=== PATIENT | female | born 1950 | race Caucasian/White ===

== ENCOUNTER 2016-07-30 22:16 | Inpatient (IN) | payer MEDICARE, OTHER ==
--- NOTE | ~2016-07-30 | EKG ---
PATIENT: RANDY REYNOLDS UNIT #: [id number] Ventricular Rate: 107 BPM Atrial Rate: 107 BPM P-R Interval: 128 ms QRS Duration: 74 ms Q-T Interval: 302 ms QTC Calculation(Bezet): 403 ms P Eudora: 72 degrees Calculated R Eudora: -30 degrees Calculated T Eudora: 52 degrees Diagnosis Line: Sinus tachycardia Diagnosis Line: Possible Left atrial enlargement Diagnosis Line: Left axis deviation Diagnosis Line: Nonspecific ST abnormality Diagnosis Line: Abnormal ECG Diagnosis Line: No previous ECGs available Diagnosis Line: Confirmed by TALON VEGA MD ([id number]) on Diagnosis Line: 07/31/2016 8:03:22 AM INTERPRETING MD: NICOLE
--- NOTE | ~2016-07-30 | CO ---
Unit #: [id number] #: [id number] Patient: RANDY REYNOLDS [id number] [facility]. [place], [place] [address] [id number] I MR#: [id number] NAME: RANDY REYNOLDS. ROOM: 321 Age: 65 Sex: F Admission Date: 07/30/2016 : 1950 Attending Physician: Juan M Hernandez M.D. Primary Care Physician: Juan M Hernandez M.D. CONSULTATION REPORT We were asked to see her by Dr. Juan M Hernandez. REASON FOR CONSULTATION Respiratory failure. HISTORY OF PRESENT ILLNESS Ms. Reynolds is a very pleasant 65-year-old female with a history of pneumonia in the past. She is now here with increasing shortness of air. She apparently has been seen by Dr. Cadena, I believe in the [facility] area and it sounds like she has had pneumonia previously and it was followed, and at one point, I think they were close to do a bronchoscopy, but they never did one. She then had to go to [facility] and was admitted on approximately 07/20/2016 to 07/26/2016. She was found to have flu, I am not sure A versus B, also RSV and may be one other additional virus. I suspect she was treated with antibiotics at first, but then was only finding viruses, they probably stopped them. She was sent home, I believe on 3 L oxygen. She then began to feel worse in the last few days and basically just had worsened shortness of air, and therefore, came through the emergency room. She does have a cough, scantly productive of yellow sputum, maybe a bit worse. She really does not complain of any chest pain. She did previously smoke a pack and half a day, but she quit in 2006. She does have a history of COPD and she has used Symbicort and Spiriva as well as p.r.n. beta agonists. PAST MEDICAL HISTORY Otherwise significant for hypertension, gastroesophageal reflux, osteoarthritis, diverticulosis. PAST SURGICAL HISTORY Include cataract surgery, tubal ligation, and left shoulder repair. MEDICATIONS ON ADMISSION Had included Spiriva 1 capsule inhaled daily, Norvasc 10 mg p.o. daily, Cymbalta 60 mg p.o. daily, Mucinex-D one p.o. b.i.d., lisinopril 20 mg p.o. daily, metoprolol 25 mg p.o. daily, Prilosec 40 mg p.o. daily, Symbicort 160/4.5 two puffs b.i.d., prednisone pack that she was finishing. ALLERGIES Phencyclidine and sulfa. SOCIAL HISTORY She did smoke a pack and half a day, but she quit in 2006. FAMILY HISTORY Unit #: [id number] #: [id number] Patient: RANDY REYNOLDS Significant for lung disease in her father. SYSTEMS REVIEW No nausea. No vomiting. Occasional leg swelling. No skin complaints. Occasional fever and chills. All other systems are negative except as mentioned. PHYSICAL EXAMINATION GENERAL: She presents as an elderly female, in no acute distress. VITAL SIGNS: Temperature was 98.1, pulse 100, respirations 20, blood pressure 121/82. NECK: Without adenopathy. LUNGS: Evaluation of her lungs reveals that her breathing was not labored. She had inspiratory crackles at the bases and she had expiratory wheezes bilaterally. HEART: Regular. ABDOMEN: Soft, nontender, and bowel sounds were present. EXTREMITIES: Maybe trace edema. NEUROLOGIC: She was awake and alert and able to carry on a conversation. DIAGNOSTIC STUDIES IMAGING STUDIES: Her chest x-ray to my exam reveals increased interstitial markings at the bases bilaterally in a patchy fashion consistent with very patchy bilateral pneumonia, although I could not say that this was not some pulmonary fibrosis. LABORATORY RESULTS: Blood gas on 5 L revealed pH of 7.5, pCO2 35.9, pO2 57. She is presently on 6 L Oxymizer and she is 90%. Her serum chemistries are significant for BUN 20, creatinine 0.7, and glucose little bit high 168, bicarb was 27. White blood cell count was 23,000, H and H 15.2 and 46.9, platelet count 272,000. IMPRESSION 1. Acute on chronic hypoxemic respiratory failure. 2. Exacerbation of chronic obstructive pulmonary disease. 3. Pneumonia bilateral patchy lower lobe atypical in nature in my opinion, it could indeed be viral after a recent bout with the flu could even be RSV pneumonitis, could be bacterial, could even be inflammatory such as bronchiolitis obliterans with organizing pneumonia. 4. Hypertension. PLAN She was started on the hospital-acquired pneumonia protocol, which is Zosyn, vancomycin, and tobramycin. I am okay that she got one dose of each, but I would have some concern about the nephrotoxicity of this regimen. Therefore, I would like to stop the tobramycin. I would like to check a sputum for culture. She is on Solu-Medrol 80 IV q.i.d. which is fine. She is already on enoxaparin, which is fine. She is on mini nebs, which is fine, although I would like to clarify it. If we continue her Spiriva, then she probably on albuterol alone; if we do DuoNebs, then she probably should be on Spiriva even though we could get away with it. I would like to check a high-resolution CT and she may well need that bronchoscopy that was previously discussed with other doctors after all. Thank you very much for allowing me to participate in the care of this patient. Unit #: [id number] #: [id number] Patient: RANDY REYNOLDS Dictated by... Andrew Castillo/meg TD: 07/31/2016 22:56 JOB #: [id number] CONSULTATION REPORT X Colby Pettit MD CONSULTATION REPORT
--- NOTE | ~2016-07-30 | OR ---
Unit #: [id number] #: [id number] Patient: RANDY REYNOLDS [id number] [place], [place] [address] [id number] I MR#: [id number] NAME: RANDY REYNOLDS ROOM: [facility] Date of Procedure: 08/05/2016 Admission Date: 07/30/2016 Surgeon: Yareli Cano M.D. : 1950 Attending Physician: Juan M Hernandez M.D. Primary Care Physician: Juan M Hernandez M.D. OPERATIVE REPORT PROCEDURE PERFORMED Bronchoscopy with bronchoalveolar lavage. INDICATIONS FOR PROCEDURE Diffuse tree-in-bud infiltrates bilaterally in all lobes on CT scan of the chest as well as bronchiectasis. ANESTHESIA Per Anesthesiology, the premedications include 2% Xylocaine, 1% Xylocaine, and Xylocaine jelly. DESCRIPTION OF PROCEDURE After obtaining informed consent, bronchoscope was passed oropharyngeally through the bite block. Anesthesia gave propofol. The vocal cords were seen, they moved symmetrically. There was no evidence of any lesions, these were splashed with 2% Xylocaine. Bronchoscope was passed down into the trachea, which was slightly tortuous. There was some kind of thick, but very scant mucus plugging. Bronchoscope was passed in the right upper, right middle, and right lower lobe. There was no evidence of any endobronchial lesions. There was evidence of bronchitis and bronchiectasis with dilatation of the airway. There was hypertrophy of the bronchial rings. There was pitting. There was hypertrophy of the bronchial mucosa and there was extremely easy collapsibility. The bronchoscope was then passed into the right middle lobe. A 90 mL sterile non-bacteriostatic saline was introduced and approximately 15 mL of clear slightly foamy fluid was retrieved. Bronchoscope was then passed in the left upper, left lingular, and left lower lobe. There was no evidence of any endobronchial lesions. Again, significant bronchiectasis was seen, especially in the lower lobes. Bronchoscope was passed into the lower lobe posterior segment. Approximately 120 mL of sterile non-bacteriostatic saline was introduced and approximately 5 to 10 mL was returned. The patient tolerated the procedure well. There was no hypoxia. Bronchoscope was removed. There was no acute complications and there were no limitations. Samples of bronchoalveolar lavage right middle lobe and bronchoalveolar lavage left lower lobe. There was no evidence. There were no complications and no limitations. Thank you very much. Please page me at [phone] if you have any questions. Dictated by... Yareli Cano M.D. Unit #: [id number] #: [id number] Patient: RANDY REYNOLDS BM/modl TD: 08/05/2016 21:28 JOB #: [id number] OPERATIVE REPORT X Paresh Cano MD X PROCEDURE OPERATIVE NOTE
--- NOTE | ~2016-07-30 | CR63 ---
[facility] A Service of [facility] RADIOLOGY TEXT RESULTS PATIENT: RANDY REYNOLDS LOCATION: [facility] : [birth year] UNIT #: [id number] AGE: [address]: Juan M Hernandez MD SEX: F ORDER DR: [id number] [facility]. [place], [place] [address] [id number] I MR#: [id number] Acc #: [id number] NAME: RANDY REYNOLDS : 1950 SEX: F STUDY DATE/TIME: 08/04/2016 7:12 UNIT: [address] ROOM: [address] [place] [address] DESCRIPTION: CR Chest 2 View Attending Physician: Juan M Hernandez M.D. Ordering Physician: Gretchen Farris A.P.R.N. Primary Care Physician: Juan M Hernandez M.D. MEDICAL IMAGING REPORT This report is preliminary unless electronic signature is present EXAM PA and lateral chest. DATE OF STUDY 08/04 COMPARISON STUDIES 07/30 HISTORY Cough, chest tightness for the last few days. Followup of an atypical pneumonia. TECHNIQUE PA and lateral views of the chest are obtained and compared directly to the patient's previous study. FINDINGS Previous exam showed significant interstitial infiltrates in both lungs which were new. These have improved but not cleared completely. Heart size in the patient is normal. CONCLUSION Significant decrease in the reticulonodular interstitial infiltrates compared with the patient's prior study of 07/30. Dictated by... Shoaib Castro M.D. THIS IS AN ELECTRONICALLY VERIFIED REPORT Shoaib Castro M.D. at 08/04/2016 5:06 PM [facility] A Service [facility] RADIOLOGY TEXT RESULTS PATIENT: RANDY REYNOLDS LOCATION: [facility] : 49 UNIT #: [id number] AGE: [address]: Juan M Hernandez MD SEX: F ORDER DR: DAMIEN/ariana TD: 08/04/2016 10:37 JOB #: [id number] MEDICAL IMAGING REPORT COPY
--- NOTE | ~2016-07-30 | HP ---
Unit #: [id number] #: [id number] Patient: RANDY REYNOLDS [id number] [place], [place] [address] [id number] I MR#: [id number] NAME: RANDY REYNOLDS. ROOM: 321 Age: 65 Sex: F Admission Date: 07/30/2016 : 1950 Attending Physician: Juan M Hernandez M.D. Primary Care Physician: Juan M Heranndez M.D. HISTORY AND PHYSICAL HISTORY OF PRESENT ILLNESS This is a 65-year-old white female with history of COPD, hypertension, major depressive disorder, tremor, osteoarthritis, GE reflux disease, diverticulosis. She was recently admitted to another facility with RSV and influenza A. Since discharge, she has had increasing shortness of air, cough, dyspnea on exertion, subjective fever. She presented to our emergency room, hypoxic, with bilateral lower lobe infiltrates and is readmitted to this facility for further evaluation and treatment. PAST MEDICAL HISTORY 1. Hypertension. 2. COPD. 3. Major depressive disorder. 4. Osteoarthritis. 5. GE reflux disease. 6. Diverticulosis. 7. Tremor. 8. Prior tobacco use. PAST SURGICAL HISTORY 1. Bilateral cataract surgery. 2. Tubal ligation in 1984. 3. Left shoulder tendon repair. 4. Left hemicolectomy with prior anastomosis for severe diverticulitis. 5. History of ventral hernia repair per laparoscopy. HOME MEDICATIONS 1. Lisinopril 20 mg daily. 2. Metoprolol succinate 25 mg daily. 3. Prilosec 40 mg daily. 4. Symbicort 160/4.5 two puffs q.12 h. 5. Medrol Dosepak. 6. Spiriva one puff daily. 7. Norvasc 10 mg daily. 8. Cymbalta 60 mg daily. 9. Mucinex DORINDA one tab b.i.d. ALLERGIES 1. Sulfa drugs. 2. Chantix. SOCIAL HISTORY Recently . Nondrinker. Used tobacco in the past. No street drug Unit #: [id number] #: [id number] Patient: RANDY REYNOLDS use. FAMILY HISTORY Noncontributory. PHYSICAL EXAMINATION VITAL SIGNS: She was afebrile in the ER. Pulse was originally 120 then fell to 88. Respirations were 25 and fell to 18. Blood pressure was 162/87 and fell to 131/74. O2 saturation on 6 liters in the ER was 77%, currently 95% on 5 liters. HEENT: Unremarkable except for nasal cannula in place. NECK: Supple without JVD, bruits, adenopathy, or thyromegaly. LUNGS: Diffusely decreased breath sounds with bibasilar crackles. HEART: Regular rate and rhythm without murmurs, rubs, or gallops. ABDOMEN: Large, soft, nondistended, nontender with positive bowel sounds and no hepatosplenomegaly. EXTREMITIES: No clubbing, cyanosis, or edema. GENITOURINARY: Deferred. RECTAL: Deferred. NEUROLOGIC: Grossly intact. DIAGNOSTIC STUDIES LABORATORY: On 5 liters, pH 7.5, pCO2 is 36, paO2 is 57. Lactic acid 1.3. BNP 80. CMP was normal except for random blood sugar of 168, ALT 59, albumin 3.1. White count 23.2 with a left shift. Cardiac enzymes normal. IMAGING: Chest x-ray new bilateral lower lobe alveolar infiltrates. CARDIOVASCULAR: EKG sinus tachycardia at 107 beats per minute. Left axis deviation. Left atrial enlargement. IMPRESSION 1. Ibkdn-yb-giypdya respiratory failure. 2. Hypoxemia. 3. Chronic obstructive pulmonary disease. 4. Hypertension. 5. Osteoarthritis. 6. Gastroesophageal reflux disease. 7. Bibasilar alveolar infiltrates. 8. Tremor. 9. Status post left hemicolectomy for diverticulitis. 10. Status post ventral abdominal wall hernia repair. 11. Status post bilateral cataract surgery. 12. Mild elevation in liver function tests. PLAN 1. IV antibiotics with healthcare-acquired pneumonia antibiotic protocol. 2. IV steroids. 3. Respiratory treatments. 4. Supplemental oxygen. 5. Pulmonary consult. 6. Check procalcitonin. 7. Lovenox for DVT prophylaxis. 8. Further evaluation pending results of the above. Unit #: [id number] #: [id number] Patient: RANDY REYNOLDS Dictated by Andrew Arguello/alex TD: 07/31/2016 18:05 JOB #: [id number] HISTORY AND PHYSICAL X Juan M Hernandez MD HISTORY AND PHYSICAL
--- NOTE | ~2016-07-30 | DS ---
Unit #: [id number] #: [id number] Patient: RANDY REYNOLDS [id number] [address] [address] [id number] I MR#: [id number] NAME: RANDY REYNOLDS. ROOM: [facility] Age: 65 Sex: F Admission Date: 07/30/2016 : 1950 Discharge Date: 08/07/2016 Attending Physician: Juan M Hernandez M.D. Primary Care Physician: Juan M Hernandez M.D. DISCHARGE SUMMARY PRINCIPAL DISCHARGE DIAGNOSES 1. Psagd-zi-rfpinwi respiratory failure. 2. Atypical bilateral lower lobe infiltrates. 3. Chronic obstructive pulmonary disease. 4. Hypertension. 5. Newly diagnosed type 2 diabetes mellitus. 6. Osteoarthritis. 7. Gastroesophageal reflux disease. 8. Major depressive disorder. 9. Familial tremor. 10. Diverticulosis. 11. Status post bilateral cataract surgery. 12. Status post tubal ligation. 13. Status post left shoulder tendon repair. 14. Status post left hemicolectomy for severe diverticulitis. 15. History of ventral hernia repair per laparoscopy. PROCEDURES Bronchoscopy with bronchoalveolar lavage on 08/05/16. CONSULTANTS Dr. Cano. REASON FOR HOSPITALIZATION The patient is a 65-year-old white female with history of COPD, hypertension, major depressive disorder, tremor, osteoarthritis, GE reflux disease, diverticulosis, recently admitted to another facility with RSV and influenza A, discharged on no antibiotics, tapering dose of prednisone, presented to the emergency room with hypoxemia and new bilateral lower lobe infiltrates. She was afebrile. Pulse was recently 120, respirations 25, O2 sat on 6 L was 77% and she is on currently 3 L at home. On 5 L her pH is 7.5, pCO2 is 36, PaO2 is 57. Lactic acid was 1.3. BNP was 80. CMP was normal except for a random blood sugar of 168 and ALT of 59. Albumin 3.1. White count was 23.2 with a left shift. Cardiac enzymes normal. EKG sinus tach, left axis deviation, left atrial enlargement and the patient was admitted for treatment for flwkj-lg-jepjtde respiratory failure, hypoxemia and atypical bilateral alveolar infiltrates. The patient was admitted to telemetry bed. She was started on IV antibiotics for healthcare-acquired pneumonia per protocol, IV steroids, respiratory treatment, supplemental oxygen, Lovenox for DVT prophylaxis. Procalcitonin was sent. Pulmonary services were consulted. Dr. Pettit Unit #: [id number] #: [id number] Patient: RANDY REYNOLDS and Dr. Cano saw the patient. She rapidly improved. Procalcitonin was 0.21. CT scan of the chest showed moderate to severe emphysema mostly of the upper lobes with bibasilar reticulonodular opacities, a fatty liver and mild fibrosis. White count came down. She remained afebrile. Blood sugars became more elevated with steroids. She was placed on Accu-Cheks a.c. and h.s. and sliding scale insulin. Blood cultures remained no growth. Hemoglobin A1C was checked. It was 8.1%, consistent with a new diagnosis of type 2 diabetes mellitus. Her tobramycin and vancomycin were discontinued on the . Steroids were weaned. Sputum for AFB was obtained q.a.m. x3 days and stains are negative. She was started on Actos for fatty liver disease and type 2 diabetes mellitus. She underwent bronchoscopy on the showing no endobronchial lesions. She was switched to Augmentin on the . PT and OT saw the patient and recommended inpatient physical therapy. On the her blood pressure was somewhat elevated. She is always somewhat tachycardic and her Toprol was increased. Apparently she has a bed at [facility] and will be transferred there. Her blood sugars are slowly but surely improving. Bronchial cytology shows atypical cells, favor reactive atypia per stain. Cultures are currently pending but so far just show normal oral jeniffer. Follow up chest x-ray showed improvement in her bilateral lower lobe infiltrates. Currently she is being discharged to rehab. Constant carb diet. DISCHARGE INSTRUCTIONS She would probably do well there to be started on metformin but obviously in the hospital this could not be performed. Currently she is on: 1. Albuterol mini-nebs q.i.d. and p.r.n. 2. Symbicort 160/4.5 two puffs q.12 h. 3. Prednisone 30 mg for one day then 20 mg for two days then 10 mg for two days. 4. She is on Tylenol 650 q.6 h. p.r.n. 5. Spiriva one puff daily. 6. Lovenox 40 mg subcu daily. 7. Cymbalta 60 mg daily. 8. Actos 30 mg daily. 9. Zofran 4 mg p.o. q.4 h. p.r.n. 10. Nystatin suspension 5 mL swish and swallow q.i.d. 11. Humibid DM one tab p.o. b.i.d. 12. Norvasc 10 mg p.o. daily. 13. Toprol-XL 50 mg p.o. daily. 14. MiraLAX 17 g p.o. daily. 15. Lisinopril 20 mg p.o. daily. 16. Medium dose sliding scale a.c. and h.s. 17. Augmentin 875 one p.o. b.i.d. for an additional three days. 18. Prilosec 40 mg daily. 19. Sodium chloride 3% mini-neb b.i.d. 20. O2 at 3 L nasal cannula continuously. Dictated by... Andrew Arguello/kathleen TD: 08/07/2016 18:13 JOB #: [id number] Unit #: [id number] #: [id number] Patient: RANDY REYNOLDS DISCHARGE SUMMARY X Juan M Hernandez MD X DISCHARGE SUMMARY
--- NOTE | ~2016-07-30 | CR72 ---
[facility] A Service of [facility] RADIOLOGY TEXT RESULTS PATIENT: RANDY REYNOLDS [facility] [birth year] UNIT #: [id number] AGE: [address]: Juan M Hernandez MD SEX: F ORDER DR: [id number] [facility] [address] [place], [place] [address] [id number] E MR#: [id number] Acc #: [id number] NAME: RANDY REYNOLDS. : 1950 SEX: F STUDY DATE/TIME: 07/30/2016 21:38 UNIT: [facility] ROOM: STUDY DESCRIPTION: CR Chest Single View Portable Attending Physician: Aric Bonilla D.O. Ordering Physician: Aric Bonilla D.O. Primary Care Physician: Juan M Hernandez M.D. MEDICAL IMAGING REPORT This report is preliminary unless electronic signature is present EXAM Chest x-ray portable HISTORY Short of air, weakness today. History of hypertension. TECHNIQUE Single frontal portable view of the chest timed 21:38 on 07/30/2016 reviewed. COMPARISON STUDIES 01/31/2011. FINDINGS Interval development of parenchymal abnormalities with bilateral, somewhat nodular fibular infiltrates to the rrj-cq-zfpxf lungs, somewhat peripheral distribution. Cardiac silhouette size is top normal. There is also thickening of the central peribronchovascular soft tissues and prominence of the interstitial markings in general. Please correlate for clinical concern for typical or atypical infectious pathology. Bacterial pneumonia and aspiration are in the differential but other atypical infectious or inflammatory entities would also be in the differential. There is no pleural effusion. The findings do not appear to be due to volume overload given the lack of heart enlargement or pleural effusion and there is no pneumothorax. IMPRESSION 1. Interval development of parenchymal abnormalities with new bilateral jea-gg-rjnmq lung, somewhat nodular alveolar infiltrates, somewhat peripheral distribution noted. In general, there is increased prominence of interstitial markings and central peribronchovascular markings when comparison is made back to a film of 2010. There is nothing to suggest [facility] A Service of [facility] RADIOLOGY TEXT RESULTS PATIENT: RANDY REYNOLDS LOCATION: [facility] [id number] : [birth year] UNIT #: [id number] AGE: [address]: Juan M Hernandez MD SEX: F ORDER DR: congestive failure and the findings are most concerning for pneumonia or aspiration. Both typical infectious disease (bacterial pneumonia) and atypical infectious or inflammatory entity should be considered given the appearance. Further clinical assessment and follow up to ensure resolution is recommended. No pneumothorax. Heart size normal. STAT * RESULT Dictated by... Janel Ramirez M.D. THIS IS AN ELECTRONICALLY VERIFIED REPORT Janel Ramirez M.D. at 07/31/2016 12:00 AM INDIO/junito TD: 07/30/2016 23:03 JOB #: [id number] MEDICAL IMAGING REPORT COPY
--- NOTE | ~2016-07-30 | CR72 ---
[facility] A Service of [facility] RADIOLOGY TEXT RESULTS PATIENT: RANDY REYNOLDS LOCATION: [facility] 315- : [birth year] UNIT #: [id number] AGE: [address]: Juan M Hernandez MD SEX: F ORDER DR: [id number] [facility] [address] [facility]. [place], [place] [address] [id number] I MR#: [id number] Acc #: [id number] NAME: RANDY REYNOLDS : 1950 SEX: F STUDY DATE/TIME: 08/06/2016 6:21 UNIT: [address] ROOM: [facility] STUDY DESCRIPTION: CR Chest Single View Portable Attending Physician: Juan M Hernandez M.D. Ordering Physician: Yareli Cano M.D. Primary Care Physician: Juan M Hernandez M.D. MEDICAL IMAGING REPORT This report is preliminary unless electronic signature is present EXAM Portable chest, 08/06/2016 HISTORY Shortness of air for 1 week. Cough. Hypertension. COMPARISON Chest, 08/04/2016 FINDINGS 2 frontal views of the chest demonstrate clear lungs. No pleural effusion or pneumothorax. Heart size and mediastinum are within normal limits. Pulmonary vasculature unremarkable. IMPRESSION No acute cardiopulmonary findings. Dictated by... Kristian aBiley M.D. THIS IS AN ELECTRONICALLY VERIFIED REPORT Kristian Bailey M.D. at 08/06/2016 3:54 PM FREDDY/bobo TD: 08/06/2016 10:13 JOB #: [id number] MEDICAL IMAGING REPORT COPY
--- NOTE | ~2016-07-30 | CT57 ---
[facility] A Service of [facility] & [facility] RADIOLOGY TEXT RESULTS PATIENT: RANDY REYNOLDS LOCATION: [facility] - : [birth year] UNIT #: [id number] AGE: [address]: Juan M Hernandez MD SEX: F ORDER DR: [id number] [facility] [address]. [place], [place] [address] [id number] I MR#: [id number] #: [id number] NAME: RANDY REYNOLDS : 1950 SEX: F STUDY DATE/TIME: 07/31/2016 18:26 UNIT: [address] ROOM: [facility] STUDY DESCRIPTION: CT Chest Wo Cont Attending Physician: Juan M Hernandez M.D. Ordering Physician: Colby Pettit M.D. Primary Care Physician: Juan M Hernandez M.D. MEDICAL IMAGING REPORT This report is preliminary unless electronic signature is present EXAM High-resolution chest CT, 07/31/2016. HISTORY 65-year-old female admitted to the hospital yesterday with COPD exacerbation, shortness of air. Symptoms for about 2 weeks. Increased reticular markings in the lung bases on chest x-ray. Evaluate for interstitial lung disease. TECHNIQUE CT examination of the chest was performed using high-resolution technique. Supplemental images included prone images through the lung bases as well as expiratory images at several levels. A single continuous helical series was also obtained. This CT exam was performed with one or more of the following radiation dose reduction techniques: Automatic exposure control, adjustment of mA and/or kV according to patient size, and iterative reconstruction. FINDINGS Advanced diffuse centrilobular pulmonary emphysema throughout both lungs, greatest in the upper lobes. There is bronchial wall thickening throughout the periphery of both mid lungs and throughout both lower lobes, and there is peripheral, bronchocentric, tree-in-bud interstitial nodularity in the peripheral mid and lower lungs which could be due to opacification of peripheral bronchiolar airspaces. There is also mild scattered lower lung bronchiectasis. The findings suggest acute bronchitis/bronchiolitis. There is no airspace consolidation or pleural effusion. Only minimal peripheral fibrotic scarring is present in both lung bases. IMPRESSION 1. Moderately severe diffuse pulmonary emphysema, greatest in the upper STS. [facility] A Service of [facility] RADIOLOGY TEXT RESULTS PATIENT: RANDY REYNOLDS LOCATION: A 321-01 : [birth year] UNIT #: [id number] AGE: [address]: Juan M Hernandez MD SEX: F ORDER DR: lungs. 2. Bibasilar reticulonodular opacities visible on chest x-ray yesterday appear to be predominantly due to bronchial wall thickening, peripheral bronchocentric tree-in-bud interstitial nodularity and some mild scattered bronchiectasis. The findings suggest acute bronchitis/bronchiolitis. There is no airspace consolidation or pleural effusion. 3. Only mild scattered subpleural fibrosis in the lower lungs. 4. Diffuse hepatic steatosis. Dictated by... Miky Black M.D. THIS IS AN ELECTRONICALLY VERIFIED REPORT Miky Black M.D. at 08/01/2016 10:17 AM TANMAY/lluvia TD: 08/01/2016 00:27 JOB #: [id number] MEDICAL IMAGING REPORT COPY
[2016-07-30 21:42] LABS: BASOPHIL# 0.1 X10e3 (0-0.3); BASOPHIL% 0.3 % (0-2.5); DIFF IND YES; HEMATOCRIT 46.9 % (35.0-45.0); HEMOGLOBIN 15.2 gm/dL (12.0-16.0); LYMPHOCYTE# 1.7 X10e3 (1.0-3.5); LYMPHOCYTE% 7.5 % (17.0-45.0); MEAN CELL VOLUME 92.9 FL (83-96); MEAN CORPUSCULAR HEMOGLOBIN 30.1 PG (28-34); MEAN CORPUSCULAR HGB CONC 32.4 g/dL (30-36); MEAN PLATELET VOLUME 9.7 FL (6.5-11.5); MONOCYTE# 1.1 X10e3 (0-1.0); MONOCYTE% 4.6 % (3.0-12.0); NEUTROPHIL# 20.3 X10e3 (1.5-7.1); NEUTROPHIL% 87.6 % (40-75); PLATELET COUNT 272 X10e3 (140-420); RED BLOOD COUNT 5.05 X10e (3.90-5.30); WHITE BLOOD COUNT 23.2 X10e3 (4.0-10.5)
[2016-07-30 21:47] LABS: ARTERIAL BLD GAS O2 SATURATION 91.1 % (90.0-100.0); ARTERIAL BLOOD GAS CARBOXY HB 0.4 %sat (0.0-9.0); ARTERIAL BLOOD GAS HCO3 28.2 mmol/L; ARTERIAL BLOOD GAS PCO2 35.9 mmHg (35.0-45.0); ARTERIAL BLOOD GAS pH 7.503 (7.350-7.450)
[2016-07-30 21:49] LABS: ARTERIAL BLOOD GAS ALLEN TEST NORMAL; ARTERIAL BLOOD GAS ART SITE LEFT RADIAL; ARTERIAL BLOOD GAS DELIVERY NASAL CANNULA; ARTERIAL DRAW? YES
[2016-07-30 22:05] LABS: ALBUMIN SERUM 3.1 g/dL (3.5-5.0); ALKALINE PHOSPHATASE 78 U/L (32-92); ALT (SGPT) 59 U/L (10-40); AST (SGOT) 21 U/L (10-42); BILIRUBIN, DIRECT 0.2 mg/dL (0.0-0.2); BILIRUBIN,INDIRECT 0.5 mg/dL (0.0-0.9); BILIRUBIN,TOTAL 0.7 mg/dL (0.2-2.0); BLOOD UREA NITROGEN 20 mg/dL (9-23); BUN/CREATININE RATIO 28.57; CARBON DIOXIDE 27 mmol/L (22-31); CHLORIDE 101 mmol/L (100-111); CREATININE SERUM 0.7 mg/dL (0.6-1.4); GLOM FILT RATE Estimated ABOVE60 mL/min (>60); GLUCOSE FASTING 168 mg/dL (70-110); POTASSIUM 3.9 mmol/L (3.5-5.1); PROTEIN TOTAL SERUM 7.6 g/dL (6.0-8.3); SODIUM 139 mmol/L (135-145)
[~2016-07-30 22:16] MED LIST: ALLEGRA; ALLEGRA-D1 TAB.SR1 PO; ALPRAZOLAM PO; AMLODIPINE BESYL5 MG PO; ATENOLOL PO; CELEXA PO; CIPRO PO; DELTASONE20 MG; DEXILANT60 MG PO; DULOXETINE HCL60 MG PO; FLAGYL PO; FLOVENT DI50 MCG/DIS IH; FLUOXETINE HCL20 M1 PO; LISINOPRIL-HCTZ1 T14 PO; LISINOPRIL20 MG PO; LORTAB 7.5-5001 TAB PO; METOPROLOL SUCC25 MG PO; MUCINEX D ER T1 EACH PO; NORVASC10 MG PO; PERCOCET5/325 PO; PREMPRO 0.3 MG/1 TAB PO; PRILOSEC PO; PROGESTERONE; PROTONIX PO; SPIRIVA18 MCG INH; SYMBICORT INH; ULTRAM PO; ZESTORETIC 20/11 TAB PO; [UNRECOGNIZED DRUG - REMARK]
[2016-07-30 22:38] LABS: ANISOCYTOSIS SL; PLATELET ESTIMATE NORMAL (NORMAL)
[2016-07-30 23:45] LABS: POC - CKMB <1.0 ng/mL (0.0-7.9); POC - TROPONIN <0.05 ng/mL (<=0.05)
[2016-08-01 07:01] LABS: HEMATOCRIT 43.5 % (35.0-45.0); HEMOGLOBIN 13.7 gm/dL (12.0-16.0); MEAN CELL VOLUME 93.8 FL (83-96); MEAN CORPUSCULAR HEMOGLOBIN 29.5 PG (28-34); MEAN CORPUSCULAR HGB CONC 31.4 g/dL (30-36); MEAN PLATELET VOLUME 9.8 FL (6.5-11.5); RED BLOOD COUNT 4.64 X10e (3.90-5.30); WHITE BLOOD COUNT 12.9 X10e3 (4.0-10.5)
[2016-08-01 07:24] LABS: ALBUMIN SERUM 2.7 g/dL (3.5-5.0); BILIRUBIN,TOTAL 0.8 mg/dL (0.2-2.0); CALCIUM SERUM 9.1 mg/dL (8.4-10.2); MAGNESIUM 2.2 mg/dL (1.6-3.0); PROTEIN TOTAL SERUM 6.6 g/dL (6.0-8.3)
[2016-08-01 17:01] LABS: POTASSIUM 4.1 mmol/L (3.5-5.1)
[2016-08-02 08:35] LABS: HEMATOCRIT 41.9 % (35.0-45.0); HEMOGLOBIN 13.5 gm/dL (12.0-16.0); MEAN CELL VOLUME 94.1 FL (83-96); MEAN CORPUSCULAR HEMOGLOBIN 30.2 PG (28-34); MEAN CORPUSCULAR HGB CONC 32.1 g/dL (30-36); MEAN PLATELET VOLUME 9.6 FL (6.5-11.5); RED BLOOD COUNT 4.45 X10e (3.90-5.30); RED CELL DISTRIBUTION WIDTH 14.4 % (11.0-15.5); WHITE BLOOD COUNT 11.6 X10e3 (4.0-10.5)
[2016-08-02 09:12] LABS: ALBUMIN SERUM 2.8 g/dL (3.5-5.0); BILIRUBIN,TOTAL 0.5 mg/dL (0.2-2.0); BUN/CREATININE RATIO 22.3; CALCIUM SERUM 9.2 mg/dL (8.4-10.2); CREATININE SERUM 1.3 mg/dL (0.6-1.4); GLOM FILT RATE Estimated 43.6 mL/min (>60); POTASSIUM 4.4 mmol/L (3.5-5.1); PROTEIN TOTAL SERUM 6.2 g/dL (6.0-8.3)
[2016-08-03 05:55] LABS: HEMATOCRIT 42.1 % (35.0-45.0); HEMOGLOBIN 13.4 gm/dL (12.0-16.0); MEAN CELL VOLUME 93.1 FL (83-96); MEAN CORPUSCULAR HEMOGLOBIN 29.6 PG (28-34); MEAN CORPUSCULAR HGB CONC 31.7 g/dL (30-36); MEAN PLATELET VOLUME 9.3 FL (6.5-11.5); RED BLOOD COUNT 4.52 X10e (3.90-5.30); RED CELL DISTRIBUTION WIDTH 14.2 % (11.0-15.5); WHITE BLOOD COUNT 9.5 X10e3 (4.0-10.5)
[2016-08-03 06:36] LABS: CALCIUM SERUM 9.2 mg/dL (8.4-10.2); POTASSIUM 5.2 mmol/L (3.5-5.1)
[2016-08-04 06:23] LABS: HEMATOCRIT 39.6 % (35.0-45.0); MEAN CELL VOLUME 92.3 FL (83-96); MEAN CORPUSCULAR HEMOGLOBIN 30.4 PG (28-34); MEAN CORPUSCULAR HGB CONC 32.9 g/dL (30-36); MEAN PLATELET VOLUME 9.2 FL (6.5-11.5); RED BLOOD COUNT 4.29 X10e (3.90-5.30); RED CELL DISTRIBUTION WIDTH 14.3 % (11.0-15.5); WHITE BLOOD COUNT 8.4 X10e3 (4.0-10.5)
[2016-08-04 07:35] LABS: BUN/CREATININE RATIO 22.72; CALCIUM SERUM 8.9 mg/dL (8.4-10.2); CREATININE SERUM 1.1 mg/dL (0.6-1.4); GLOM FILT RATE Estimated 52.8 mL/min (>60); MAGNESIUM 2.1 mg/dL (1.6-3.0); POTASSIUM 3.9 mmol/L (3.5-5.1)
[2016-08-05 08:56] LABS: HEMATOCRIT 39.8 % (35.0-45.0); MEAN CELL VOLUME 92.3 FL (83-96); MEAN CORPUSCULAR HEMOGLOBIN 30.2 PG (28-34); MEAN CORPUSCULAR HGB CONC 32.7 g/dL (30-36); MEAN PLATELET VOLUME 9.3 FL (6.5-11.5); RED BLOOD COUNT 4.31 X10e (3.90-5.30); WHITE BLOOD COUNT 8.7 X10e3 (4.0-10.5)
[2016-08-05 09:06] LABS: PARTIAL THROMBOPLASTIN TIME 23.5 SECONDS (23.5-31.3); PROTHROMBIN TIME (PATIENT) 10.5 SECONDS (9.6-11.5)
[2016-08-05 09:49] LABS: ALBUMIN SERUM 2.6 g/dL (3.5-5.0); BILIRUBIN,TOTAL 0.8 mg/dL (0.2-2.0); CALCIUM SERUM 8.5 mg/dL (8.4-10.2); POTASSIUM 3.5 mmol/L (3.5-5.1); PROTEIN TOTAL SERUM 5.2 g/dL (6.0-8.3)
[2016-08-05 11:55] LABS: BODY FLUID APPEARANCE HAZY; BODY FLUID SOURCE BRONCHIAL LAVAGE
[2016-08-05 11:56] LABS: BF TOTAL NUCLEATED CELL COUNT 157 CMM (0-100); BODY FLUID RBC <10000 CMM
[2016-08-05 11:57] LABS: BF TOTAL NUCLEATED CELL COUNT 67 CMM (0-100); BODY FLUID APPEARANCE HAZY; BODY FLUID RBC <10000 CMM; BODY FLUID SOURCE BRONCHIAL LAVAGE
[2016-08-06 05:58] LABS: HEMOGLOBIN 12.8 gm/dL (12.0-16.0); MEAN CELL VOLUME 92.7 FL (83-96); MEAN CORPUSCULAR HEMOGLOBIN 29.7 PG (28-34); MEAN CORPUSCULAR HGB CONC 32.1 g/dL (30-36); MEAN PLATELET VOLUME 9.5 FL (6.5-11.5); RED BLOOD COUNT 4.32 X10e (3.90-5.30); RED CELL DISTRIBUTION WIDTH 14.5 % (11.0-15.5)
[2016-08-06 06:42] LABS: CALCIUM SERUM 8.6 mg/dL (8.4-10.2); POTASSIUM 3.5 mmol/L (3.5-5.1)
[2016-08-07 07:15] LABS: BLOOD UREA NITROGEN 23 mg/dL (9-23); BUN/CREATININE RATIO 25.55; CALCIUM SERUM 8.7 mg/dL (8.4-10.2); CARBON DIOXIDE 33 mmol/L (22-31); CHLORIDE 99 mmol/L (100-111); CREATININE SERUM 0.9 mg/dL (0.6-1.4); GLOM FILT RATE Estimated ABOVE60 mL/min (>60); GLUCOSE FASTING 238 mg/dL (70-110); POTASSIUM 3.6 mmol/L (3.5-5.1); SODIUM 140 mmol/L (135-145)
[2017-01-05] MEDS ORDERED: INCRUSE ELLI62.5 MCG INH (15:36)
[2017-01-05] MEDS ORDERED: BREO ELLIPTA 11 EACH INH (15:36)
[2017-01-12] MEDS ORDERED: JANUVIA PO (16:07)
[2017-01-15] MEDS ORDERED: ALLEGRA PO (09:34)
== END 2016-08-07 19:05 | DRG 189 ==
LOC: CED 22:16 → CEDOF 23:05 → C3A PCU 07-31 01:06
PROVIDERS: Emergency Medicine; Internal Medicine; Internal Medicine Pulmonary Disease
PROC: 0B958ZX Drainage of Right Middle Lobe Bronchus, Via Natural or Artificial Opening Endoscopic, Diagnostic (ICD-10-PCS; principal; 2016-08-05 08:39)
PROC: 0B9B8ZX Drainage of Left Lower Lobe Bronchus, Via Natural or Artificial Opening Endoscopic, Diagnostic (ICD-10-PCS; 2016-08-05 08:39)
DX: J96.21 Acute and chronic respiratory failure with hypoxia (principal); J18.9 Pneumonia, unspecified organism; T17.490A Other foreign object in trachea causing asphyxiation, initial encounter; J44.0 Chronic obstructive pulmonary disease with (acute) lower respiratory infection; F33.1 Major depressive disorder, recurrent, moderate; E11.65 Type 2 diabetes mellitus with hyperglycemia; B37.0 Candidal stomatitis; J44.1 Chronic obstructive pulmonary disease with (acute) exacerbation; Z88.2 Allergy status to sulfonamides; Z88.8 Allergy status to other drugs, medicaments and biological substances; F41.9 Anxiety disorder, unspecified; I10 Essential (primary) hypertension; Z87.891 Personal history of nicotine dependence; M19.90 Unspecified osteoarthritis, unspecified site; K21.9 Gastro-esophageal reflux disease without esophagitis; R25.1 Tremor, unspecified; K57.90 Diverticulosis of intestine, part unspecified, without perforation or abscess without bleeding; Z98.42 Cataract extraction status, left eye; Z98.41 Cataract extraction status, right eye; J47.9 Bronchiectasis, uncomplicated
CPT/HCPCS: 36415; 36600; 71010; 71020; 71250; 80048; 80053; 80076; 80200; 82308; 82553; 82803; 82947; 83036; 83605; 83735; 83880; 84484; 85025; 85027; 85610; 85730; 87040; 87070; 87102; 87116; 87205; 87206; 87252; 87254; 87305; 87633; 88108; 89051; 93005; 94640; 94760; 96374; 97110; 97116; 97163; 99285; G8978-GP; G8979-GP; J0171; J1650; J1720; J1815; J2250; J2405; J2543; J2920; J2930; J3260; J3370

== ENCOUNTER 2016-12-20 21:44 | Emergency (ER) | payer MEDICARE, OTHER ==
[~2016-12-20] VITALS: Ht 157.5 cm; Wt 77.1 kg
[2016-12-20 23:15] LABS: URINE SOURCE CLEAN CATCH
[2016-12-20 23:25] LABS: BASOPHIL# 0.2 X10e3 (0-0.3); BASOPHIL% 1.2 % (0-2.5); EOSINOPHIL# 0.6 X10e3 (0-0.7); EOSINOPHIL% 3.8 % (0.0-7.0); HEMATOCRIT 49.5 % (35.0-45.0); HEMOGLOBIN 15.9 gm/dL (12.0-16.0); LYMPHOCYTE# 4.2 X10e3 (1.0-3.5); MEAN CELL VOLUME 92.2 FL (83-96); MEAN CORPUSCULAR HEMOGLOBIN 29.6 PG (28-34); MEAN PLATELET VOLUME 9.4 FL (6.5-11.5); MONOCYTE% 6.5 % (3.0-12.0); NEUTROPHIL% 60.5 % (40-75); PLATELET COUNT 235 X10e3 (140-420); RED BLOOD COUNT 5.37 X10e (3.90-5.30); WHITE BLOOD COUNT 14.9 X10e3 (4.0-10.5)
[2016-12-20 23:26] LABS: DIFF IND NO
[2016-12-20 23:26] LABS: URINE APPEARANCE SL HAZY; URINE BILIRUBIN NEG (NEG); URINE BLOOD NEG (NEG); URINE COLOR YELLOW; URINE GLUCOSE NORM (NORM); URINE KETONE NEG (NEG); URINE LEUKOCYTE ESTERASE NEG (NEG); URINE NITRATE NEG (NEG); URINE PROTEIN NEG (NEG); URINE UROBILINOGEN NORM (NORM)
[2016-12-20 23:29] LABS: CULTURE INDICATED? NO
[2016-12-20 23:47] LABS: ALBUMIN SERUM 4.1 g/dL (3.5-5.0); BILIRUBIN, DIRECT 0.2 mg/dL (0.0-0.2); BILIRUBIN,INDIRECT 0.4 mg/dL (0.0-0.9); BILIRUBIN,TOTAL 0.6 mg/dL (0.2-2.0); CALCIUM SERUM 9.4 mg/dL (8.4-10.2); CREATININE SERUM 1.2 mg/dL (0.6-1.4); GLOM FILT RATE Estimated 46.7 mL/min (>60); POTASSIUM 3.9 mmol/L (3.5-5.1); PROTEIN TOTAL SERUM 7.8 g/dL (6.0-8.3)
[2017-01-05] MEDS ORDERED: BREO ELLIPTA 11 EACH INH (15:36)
[2017-01-05] MEDS ORDERED: INCRUSE ELLI62.5 MCG INH (15:36)
[2017-01-12] MEDS ORDERED: JANUVIA PO (16:07)
[2017-01-15] MEDS ORDERED: ALLEGRA PO (09:34)
== END 2016-12-21 00:47 | disposition left against medical advice (07) ==
LOC: CED 21:44
DX: Z53.21 Procedure and treatment not carried out due to patient leaving prior to being seen by health care provider (principal)
CPT/HCPCS: 80048; 80076; 81003; 82150; 83690; 85025

== ENCOUNTER → 2016-12-24 | Outpatient (CLI) | payer MEDICARE, OTHER ==
[~2016-12-24] MED LIST changes: +ALLEGRA PO; +BREO ELLIPTA 11 EACH INH; +INCRUSE ELLI62.5 MCG INH; +JANUVIA PO
--- NOTE | ~2016-12-24 | CT4 ---
[facility] A Service of [facility] & [facility] RADIOLOGY TEXT RESULTS PATIENT: RANDY REYNOLDS LOCATION: [facility] : 48 UNIT #: [id number] AGE: [address]: Juan M Hernandez MD SEX: F ORDER DR: [id number] [facility] [address] [place], [place] [address] [id number] O MR#: [id number] Acc #: [id number] NAME: RANDY REYNOLDS : 1950 SEX: F STUDY DATE/TIME: 12/24/2016 9:37 UNIT: [facility]AT ROOM: STUDY DESCRIPTION: CT Abd and Pelv Wo Cont Attending Physician: Juan M Hernandez M.D. Referring Physician: Juan M Hernandez M.D. Ordering Physician: Juan M Hernandez M.D. Primary Care Physician: Juan M Hernandez M.D. MEDICAL IMAGING REPORT This report is preliminary unless electronic signature is present EXAM CT abdomen and pelvis without IV contrast COMPARISON October 09, 2009 and January 25, 2008 INDICATIONS 66-year-old female with microscopic hematuria intermittently for the past 2 years. Bloody diarrhea for [address] exam was performed with one or more of the following radiation dose reduction techniques: automatic control, adjustment of mA and/or kV according to patient size, and iterative reconstruction. FINDINGS Axial CT imaging of the abdomen and pelvis was performed without IV contrast. Lack of IV contrast limits evaluation of adenopathy, vasculature and viscera. Coronal and sagittal reformats were constructed. There are small fat-containing inguinal hernias bilaterally. There are changes of anterior abdominal wall hernia repair with mesh material noted. There is adherence of small bowel loops to the mesh in the midline mid abdomen, extending down into the pelvis. No evidence of associated bowel obstruction. Bulky degenerative facet disease at multiple levels of the lumbar spine with relative sparing at L1-L2. Disc height loss at L4-L5 with posterior disc protrusions at L2-L3 through L5-S1. No acute fractures or suspicious osseous lesions. Moderate centrilobular emphysema. No acute findings in the imaged lower chest. Hepatomegaly with hepatic length of 19.1 cm. Prior cholecystectomy. Low density 1 cm lesion in the posterior spleen is indeterminate with internal STS. [facility] A Service of [facility] RADIOLOGY TEXT RESULTS PATIENT: RANDY REYNOLDS LOCATION: [facility] : [birth year] UNIT #: [id number] AGE: [address]: Juan M Hernandez MD SEX: F ORDER DR: Hounsfield units of 18. This most likely represents a splenic cyst or hemangioma. There is fatty replacement of the pancreas. A 1.1 cm right adrenal nodule with negative internal Hounsfield units suggestive of a benign myelolipoma. Kidneys are within normal limits. There is no hydronephrosis or hydroureter. No renal or ureteral calculi. Somewhat lobular appearance of the bladder, nonspecific finding. The uterus appears to be displaced to the left side of the pelvis and lobular in contour with multiple internal calcifications most consistent with multiple uterine leiomyomas. Prior resection of the left colon with sigmoid anastomosis. No evidence of bowel obstruction. Appendix is normal. Ileocecal valve appears prominent and has somewhat of a mass-like appearance measuring up to 2.9 cm. This is not appreciated in 2009. This also appears more prominent as compared to January 2008. Hypoattenuation currently seen in the spleen was not present on postcontrast CT of January 2008. No free fluid or pneumoperitoneum. Abdominal aorta displays multifocal calcifications but is normal in caliber. 1 cm short axis lymph node in the portocaval location, likely reactive. This is mildly enlarged as compared to 2007 at which time it measured 7 mm short axis. IMPRESSION 1. Normal CT evaluation of the kidneys, ureters. No evidence of renal or ureteral calculus. 2. Findings consistent with multiple uterine leiomyomas. 3. Prior cholecystectomy and anterior abdominal wall hernia repair as well as left colectomy. There is abutment of multiple small bowel loops to the mesh material of the anterior abdominal wall most consistent with adhesive disease. No evidence of associated mechanical obstruction. 4. Multilevel degenerative changes of the lumbar spine most significant for multilevel posterior disc protrusions. 5. Moderate emphysema. 6. Hepatomegaly. 7. Low-density lesion in the spleen measuring up to a cm, not seen previously. This may represent a cyst or hemangioma but technically has indeterminate internal density. This could also represent a slightly heterogeneous appearance of the spleen but does appear to be new from prior postcontrast CT of 2007. Consider CT abdomen with without IV contrast to further characterize. This most likely represents a benign cyst or hemangioma. 8. 1.1 cm fat-containing nodule in the right adrenal gland most consistent with a benign myelolipoma. 9. Somewhat mass-like appearance of the ileocecal valve/cecum measuring approximately 2.9 x 2.5 cm x 3.3 cm. This appears new from comparison exams. It could be related to peristalsis and/or adherent stool. A correlation with recent colonoscopy is recommended if none has been performed. This should be considered as soon as possible. 10. Slight enlargement of a previously seen portocaval lymph node measuring up to 1 cm short axis, likely reactive. [facility] A Service of [facility] RADIOLOGY TEXT RESULTS PATIENT: RANDY REYNOLDS LOCATION: [facility] : 48 UNIT #: [id number] AGE: [address]: Juan M Hernandez MD SEX: F ORDER DR: Dictated by... Stephen Garcia M.D. THIS IS AN ELECTRONICALLY VERIFIED REPORT Stephen Garcia M.D. at 12/30/2016 9:39 AM CIRILO/maria c TD: 12/25/2016 00:02 JOB #: [id number] MEDICAL IMAGING REPORT Page 1 of 1 COPY
== END | disposition home or self-care (01) ==
LOC: CCAT 08:56
DX: R31.1 Benign essential microscopic hematuria (principal); J43.9 Emphysema, unspecified; R16.0 Hepatomegaly, not elsewhere classified; D73.89 Other diseases of spleen; M47.896 Other spondylosis, lumbar region; M51.26 Other intervertebral disc displacement, lumbar region; E27.8 Other specified disorders of adrenal gland; Z90.49 Acquired absence of other specified parts of digestive tract; Z98.890 Other specified postprocedural states
CPT/HCPCS: 74176

== ENCOUNTER → 2017-01-15 | Day surgery (SDC) | payer MEDICARE, OTHER ==
--- NOTE | ~2017-01-15 | OR ---
Unit #: [id number] #: [id number] Patient: RANDY REYNOLDS [id number] [address] [id number] O MR#: [id number] NAME: RANDY REYNOLDS ROOM: Date of Procedure: 01/15/2017 Admission Date: 01/15/2017 Surgeon: Trell Garcia M.D. : 1950 Attending Physician: Trell Garcia M.D. Primary Care Physician: Juan M Hernandez M.D. OPERATIVE REPORT PREOPERATIVE DIAGNOSES 1. Dysphagia. 2. Intermittent diarrhea. POSTOPERATIVE DIAGNOSES 1. Dysphagia. 2. Intermittent diarrhea. PROCEDURES PERFORMED 1. Esophagogastroduodenoscopy. 2. Biopsy of antrum for Helicobacter pylori testing. 3. Colonoscopy to cecum. 4. Multiple random biopsies of colon. ANESTHESIA Monitored anesthesia care. FINDINGS The patient was found on an upper endoscopy to have mild gastritis and small hiatal hernia, but no stenosis or stricture. On colonoscopy, the patient had a normal anastomosis at 25 cm, otherwise normal. Multiple random biopsies were obtained. SPECIMENS Sent to pathology. COMPLICATIONS None apparent. CONDITION The patient tolerated the procedure well. INDICATIONS FOR PROCEDURE The patient is a 66-year-old white female, who has had some intermittent dysphagia. She also has had some intermittent diarrhea. She presents at this time for evaluation by upper and lower endoscopy. DESCRIPTION OF PROCEDURE After obtaining informed consent, the patient was brought to the endoscopy suite and after adequate monitored anesthesia care, had the endoscope placed through the mouth into the upper esophagus under direct vision. It was slowly advanced to the level of the duodenum without difficulty and Unit #: [id number] #: [id number] Patient: RANDY REYNOLDS with the lumen always in view. The second and third portion of the duodenum were normal. The duodenal bulb was normal. The pylorus opened normally. There was some mild distal gastritis present and a biopsy was obtained for Helicobacter pylori testing. On retroflexion back to the GE junction, there was a small hiatal hernia seen, but no other abnormalities were found in the proximal third, middle third, or incisura. On pulling back above the GE junction, there was no stenosis, stricture, or neoplasm seen. There was no significant esophagitis. The remaining portion of the esophagus was within normal limits. Laryngeal structures were grossly normal as viewed from above. There was no obvious Zenker diverticulum seen. At this point in time, the colonoscope was placed through the anus and slowly advanced to the level of the cecum without difficulty with lumen always in view. The cecum was normal as was the ileocecal valve. The ascending colon was normal as was the hepatic flexure and transverse colon to the area of the anastomosis. The patient is status post an extended left hemicolectomy for diverticular disease. The anastomosis was widely patent. Multiple random biopsies had been performed for pathologic evaluation. The rectosigmoid and rectum were all within normal limits. On retroflexing in the rectum to the anorectal junction, the patient was found to have some mild internal hemorrhoids. The scope was removed without difficulty. The patient tolerated the procedure well and went from the endoscopy suite to the recovery area in stable condition. RECOMMENDATIONS High-fiber diet, lots of liquids, tucks or wipes p.r.n. Gastroesophageal reflux sheet given. Call Thursday for pathology and to discuss results. Dictated by... Andrew Cruz/meg TD: 01/15/2017 16:25 JOB #: [id number] [facility] OPERATIVE REPORT Page 1 of 1 X Trell Garcia MD X PROCEDURE OPERATIVE NOTE
== END | disposition home or self-care (01) ==
LOC: COPS 08:43
DX: K52.9 Noninfective gastroenteritis and colitis, unspecified (principal); K62.89 Other specified diseases of anus and rectum; K29.70 Gastritis, unspecified, without bleeding; K44.9 Diaphragmatic hernia without obstruction or gangrene; K64.8 Other hemorrhoids; I10 Essential (primary) hypertension; E11.9 Type 2 diabetes mellitus without complications; J44.9 Chronic obstructive pulmonary disease, unspecified; K21.9 Gastro-esophageal reflux disease without esophagitis; J45.909 Unspecified asthma, uncomplicated; Z87.01 Personal history of pneumonia (recurrent); Z87.891 Personal history of nicotine dependence; Z88.1 Allergy status to other antibiotic agents; Z88.2 Allergy status to sulfonamides; Z79.51 Long term (current) use of inhaled steroids; Z79.899 Other long term (current) drug therapy; Z98.51 Tubal ligation status; Z90.49 Acquired absence of other specified parts of digestive tract; Z98.41 Cataract extraction status, right eye; Z98.42 Cataract extraction status, left eye; Z98.890 Other specified postprocedural states
CPT/HCPCS: 82947; 87077; 88305